=== PATIENT | male | born 1945 | race American Indian/Alaskan Native ===

== ENCOUNTER 2018-05-01 05:57 | Day surgery (SDC) | payer MEDICARE, OTHER ==
[2018-05-01] MEDS ORDERED: ECOTRIN PO ONE (06:31)
[2018-05-01] MEDS ORDERED: NACL 0.9% 500 ML 500 ML IV SCH (07:00)
[2018-05-01 07:05] LABS: Basophils % (Auto) 0.4 % (0.0-1.8); Eosinophils # (Auto) 0.2 K/mm3 (0.0-0.4); Eosinophils % (Auto) 2.9 % (0.0-4.3); Hematocrit 42.2 % (35.5-45.6); Hemoglobin 13.8 gm/dl (11.8-15.2); Lymphocytes # (Auto) 3.3 K/mm3 (1.2-5.4); Lymphocytes % (Auto) 48.3 % (13.4-35.0); Mean Corpuscular HGB Conc 33 % (32-34); Mean Corpuscular Hemoglobin 32 pg (28-32); Mean Corpuscular Volume 98 fl (84-94); Monocytes # (Auto) 0.7 K/mm3 (0.0-0.8); Platelet Count 204 K/mm3 (140-440); Red Blood Count 4.32 M/mm3 (3.65-5.03); Red Cell Distribution Width 14.6 % (13.2-15.2)
[2018-05-01] MEDS ORDERED: HALFPRIN EC PO NR (07:07)
[2018-05-01 07:13] LABS: INR 1.02 (0.87-1.13)
[2018-05-01 07:14] LABS: Partial Thromboplastin Time 32.4 Sec. (24.2-36.6)
[2018-05-01 08:53] LABS: BUN/Creatinine Ratio 16; Blood Urea Nitrogen 14 mg/dL (9-20); Calcium 8.8 mg/dL (8.4-10.2); Hemolysis Index 12
[2018-05-01 10:34] LABS: BUN/Creatinine Ratio 18; Blood Urea Nitrogen 14 mg/dL (9-20); Calcium 8.7 mg/dL (8.4-10.2); Hemolysis Index 2
[2018-05-01] MEDS ORDERED: HEPARIN/NS 5000 UNIT/500ML(CATH LAB) 1,500 ML IR ONE (10:51)
[2018-05-01] MEDS ORDERED: VERSED ONE (10:51)
[2018-05-01] MEDS ORDERED: SUBLIMAZE ONE (10:51)
[2018-05-01] MEDS ORDERED: HEPARIN 10,000 UNITS/10 ML ONE (10:51)
[2018-05-01] MEDS ORDERED: NITROGLYCERIN SYRINGE 0 ML ONE (10:52)
[2018-05-01] MEDS ORDERED: XYLOCAINE 2% INFILTRATI ONE (10:52)
--- NOTE | 2018-05-01 13:27 | Discharge Summary ---
Short Stay Discharge Plan Activity: advance as tolerated Weight Bearing Status: Partial Weight Bearing Diet: low fat, low cholesterol, low salt, diabetic Wound: keep clean and dry Special Instructions: no heavy lifting (3 days), hold Metformin (48 hrs only) Follow up with: ROSALBA KASPER MD [Primary Care Provider] - 7 Days JAYLEEN SKY MD [Staff Physician] - 7 Days
[2018-05-01] MEDS ORDERED: NACL 0.9% 1000 ML 1,000 ML IV SCH (14:00)
--- NOTE | 2018-05-01 15:26 | Cardiac Catherization Report ---
PROCEDURES PERFORMED: 1. Right heart catheterization. 2. Left heart catheterization. 3. Selective left and right coronary angiography. 4. Left ventricular angiography. The patient was prepped and draped in a sterile fashion after informed consent. Right femoral artery and vein were both entered using the Seldinger technique. A 6-Irish sheath was placed in the artery and an 8-Irish sheath in the vein. A [place]-Gudelia catheter was then advanced to the pulmonary artery position. A pigtail catheter was advanced into the left ventricle. Simultaneous right and left heart filling pressures were measured. Cardiac output was measured using the thermodilution method. Left ventricular angiography was then performed using the pigtail catheter, following which the pigtail was withdrawn across the aortic valve and transaortic gradient was recorded. Finally, selective left and right coronary angiography was performed using #4 right and left Jeny catheters. The catheters were removed, sheath removed, and hemostasis achieved using an Angio-Seal device over the arterial site and manual compression over the venous site. The patient was returned to the postprocedure unit in stable condition. There were no complications. FINDINGS: HEMODYNAMICS: The mean right atrial pressure was 15. Right ventricular pressure was 50/16. Pulmonary artery pressure was 50/25. The mean pulmonary artery wedge pressure was 20. Left ventricular end-diastolic pressure was 20. Ascending aortic pressure was 122/58. There was no significant pressure gradient on pullback across the aortic valve. The cardiac output was 4.2 liters per minute. CORONARY ANGIOGRAPHY: The left main coronary artery was free of significant disease. The left anterior descending artery and its diagonal branches contained diffuse mild atherosclerosis. A stent was visible in the mid AV groove circumflex. The stented segment was widely patent. Proximal to the stented segment, there was mild narrowing of the AV groove circumflex, with up to 30% luminal stenosis, otherwise mild luminal irregularities in the rest of the circumflex system. The right coronary artery was a small caliber, but dominant vessel, which also contained mild luminal irregularities in its mid segment. The left ventricle was moderately to severely dilated. There was severe left ventricular systolic dysfunction with diffuse hypokinesis. Left ventricular ejection fraction was less than 15-20%. CONCLUSION: 1. Widely patent mid circumflex artery stent, otherwise mild irregularities with no significant residual obstructive disease. 2. Dilated nonischemic cardiomyopathy, severe left ventricular systolic dysfunction, ejection fraction 15%-20%. 3. Moderate pulmonary hypertension. 4. Moderate elevation of right and left heart filling pressures. JOB# [id number] JARAD/NAMITA
[2018-05-01 16:36] VITALS: BP 105/61
== END 2018-05-01 17:10 | disposition home or self-care (01) ==
LOC: CATHLABREC 05:57
PROVIDERS: ATTEND Internal Medicine Cardiovascular Disease
DX: I25.10 Atherosclerotic heart disease of native coronary artery without angina pectoris (principal); I42.9 Cardiomyopathy, unspecified; I48.0 Paroxysmal atrial fibrillation; I34.0 Nonrheumatic mitral (valve) insufficiency; I36.1 Nonrheumatic tricuspid (valve) insufficiency; I10 Essential (primary) hypertension; Z79.82 Long term (current) use of aspirin; Z79.899 Other long term (current) drug therapy; Z79.84 Long term (current) use of oral hypoglycemic drugs; E11.9 Type 2 diabetes mellitus without complications; Z95.5 Presence of coronary angioplasty implant and graft; E78.00 Pure hypercholesterolemia, unspecified
CPT/HCPCS: 36415; 80048; 82962; 85025; 85610; 85730; 93005; 93010; 93460; 99156; 99157; C1760; C1894; J1644; J2250; J3010; J7040; Q9967